=== PATIENT | female | born 1975 | race African-American/Black ===

== ENCOUNTER 2021-04-08 02:07 | Emergency (ER) | payer MEDICAID ==
[~2021-04-08] VITALS: Ht 162.6 cm; Wt 66.0 kg
[2021-04-08 03:01] LABS: BASOPHILS % 0.2 % (0.0-2.0); EOSINOPHILS % 1.3 % (0.0-5.0); HEMATOCRIT. 39.3 % (36.0-48.0); LYMPHOCYTES % 44.9 % (20.0-50.0); MEAN CORPUSCULAR HEMOGLOBIN 28.2 pg (28.0-32.0); MEAN CORPUSCULAR VOLUME 85.4 fL (81.0-99.0); MEAN PLATELET VOLUME 8.5 fl (7.4-10.4); MONOCYTES % 9.2 % (2.0-8.0); NEUTROPHILS % 44.4 % (40.0-76.0); PLATELET 247 x1000/uL (130-400)
[2021-04-08 03:10] LABS: CHLORIDE 105 mEq/L (98-107)
[2021-04-08 03:13] LABS: INR 1.1; PARTIAL THROMBOPLASTIN TIME 28.1 sec (23.4-31.0); PROTHROMBIN TIME 11.3 sec (9.6-11.0)
[2021-04-08 03:14] LABS: ETHANOL BLOOD < 10 mg/dL
[2021-04-08 03:18] LABS: HCG SCREEN NEGATIVE
[2021-04-08] MEDS ORDERED: IOHEXOL-300 100 ML BOTTLE ONE (05:01)
[2021-04-08 05:02] LABS: CLARITY URINE CLEAR (CLEAR); COLOR URINE YELLOW (YELLOW); KETONES URINE NEGATIVE (NEGATIVE); LEUKOCYTE ESTERASE URINE 2+ (NEGATIVE); NITRITE URINE POSITIVE (NEGATIVE); OCCULT BLOOD URINE TRACE (NEGATIVE); PH URINE 7.5 (4.5-8.0); PROTEIN URINE NEGATIVE (NEGATIVE); SPECIFIC GRAVITY URINE 1.011 (1.005-1.030)
[2021-04-08 05:23] LABS: *AMPHETAMINES SCREEN URINE NEGATIVE (NEGATIVE); *BARBITURATES SCREEN URINE NEGATIVE (NEGATIVE); *BENZODIAZEPINES SCREEN URINE NEGATIVE (NEGATIVE); METHADONE URINE SCREEN NEGATIVE (NEGATIVE); OPIATES URINE SCREEN NEGATIVE (NEGATIVE); PHENCYCLIDINE URINE SCREEN NEGATIVE (NEGATIVE)
[2021-04-08 05:24] LABS: CANNABINOID URINE SCREEN NEGATIVE (NEGATIVE)
[2021-04-08] MEDS ORDERED: CEPH500C2 MT (05:43)
[2021-04-08] MEDS ORDERED: IBUP-2029 MT (05:43)
[2021-04-08 05:45] LABS: *COCAINE SCREEN URINE PRESUMTIVE POSITIVE (NEGATIVE)
[2021-04-08] MEDS ORDERED: CEFTRIAXONE 1 G PREMIX 50 ML IV NR (05:45)
[2021-04-08] MEDS ORDERED: HYDROCODONE/ACETAMINOPHEN 10/325MG TABLET PO ONE (05:45)
[2021-04-08] MEDS ORDERED: KETOROLAC 30MG/ML VIAL IV ONE (05:45)
[2021-04-08 07:17] VITALS: BP 170/99
== END 2021-04-08 07:23 | disposition home or self-care (01) ==
LOC: ER 02:07
DX: S92.001A Unspecified fracture of right calcaneus, initial encounter for closed fracture (principal); I10 Essential (primary) hypertension; N39.0 Urinary tract infection, site not specified; V49.49XA Driver injured in collision with other motor vehicles in traffic accident, initial encounter; Y93.89 Activity, other specified; Y92.89 Other specified places as the place of occurrence of the external cause; Y99.8 Other external cause status
CPT/HCPCS: 36415; 70450; 71045; 71260; 72125; 72170; 73030; 73080; 73610; 74177; 80053; 80305; 80320; 81003; 81025; 83690; 84703; 85025; 85610; 85730; 86850; 86900; 86901; 96365; 96375; 99285; J0696; J1885; Q9967; Z7610; G0480